=== PATIENT | female | born 1960 | race Hispanic/Latino ===

== ENCOUNTER → 2018-09-25 | Outpatient (CLI) | payer BC ==
[~2018-09-25] MED LIST: REGADENOSON 0.4 MG/5 ML SYR IV ONE
== END ==
LOC: NM 08:58
PROVIDERS: ATTEND Internal Medicine Cardiovascular Disease
DX: R07.9 Chest pain, unspecified (principal); R06.02 Shortness of breath
CPT/HCPCS: 78452; 93017; A9502; J2785

== ENCOUNTER → 2019-04-19 | Day surgery (SDC) | payer BC ==
[2019-04-16 14:44] LABS: BASOPHILS % 0.5 % (0.0-1.0); EOSINOPHILS # (AUTO) 0.2 (0.0-0.4); EOSINOPHILS % 2.3 % (0.0-6.0); HEMATOCRIT 41.5 % (34.2-44.1); HEMOGLOBIN 13.9 g/dL (12.0-16.0); LYMPHOCYTES % 39.8 % (18.0-39.1); MEAN CORPUSCULAR HEMOGLOBIN 32.6 pg (28-32); MEAN CORPUSCULAR HGB CONC 33.5 g/dL (31-35); MEAN CORPUSCULAR VOLUME 97.4 fL (81-99); MONOCYTES # (AUTO) 0.6 (0.2-0.8); MONOCYTES % 7.8 % (4.4-11.3); NEUTROPHILS # (AUTO) 3.7 (2.1-6.9); NEUTROPHILS % 49.3 % (38.7-80.0); PLATELET COUNT 227 x10e3/uL (140-360); RED BLOOD COUNT 4.26 x10e6/uL (3.6-5.1); RED CELL DISTRIBUTION WIDTH 12.5 % (11.7-14.4)
[2019-04-16 14:59] LABS: ANION GAP 15.6 mmol/L (8-16); BLOOD UREA NITROGEN 15 mg/dL (7-26); BUN/CREATININE RATIO 19 (6-25); CALCIUM 10.2 mg/dL (8.4-10.2); CARBON DIOXIDE 28 mmol/L (22-29); CHLORIDE 102 mmol/L (98-107); EST GLOMERULAR FILTRATION RATE > 60 ML/MIN (60-); GLUCOSE 95 mg/dL (74-118); POTASSIUM 4.6 mmol/L (3.5-5.1); SODIUM 141 mmol/L (136-145)
[~2019-04-19] VITALS: Ht 165.1 cm; Wt 77.1 kg
[~2019-04-19] MED LIST changes: +AMLODIPINE-BEN1 EAC5; +ASPIRIN81 MG; +FENTANYL CITRATE/PF 100MCG/2 ML INJ ONE; +HYDROCHLOROTHIA25 MG; +LIDOCAINE 1% W/EPINEPHRINE 20 ML VIAL ONE; +LISINOPRIL-HCT1 EACH PO; +METOPROLOL SUCC25 MG; +METOPROLOL SUCC50 MG PO; +MIDAZOLAM HCL 2 MG/2 ML VIAL ONE; -REGADENOSON 0.4 MG/5 ML SYR IV ONE; +SODIUM CHLORIDE 0.9% 500ML 500 ML ONE; +VANCOMYCIN 1GM/NS 250 ML 250 ML ONE
--- OUTSIDE RECORDS SUMMARY | 2019-04-19 06:49 | XMS REPORT ---
Author Author [facility] Address Unknown Phone Unavailable Care Team Providers Care Tap Builder Name Role Phone Criss JOE Unavailable Unavailable Problems This patient has no known problems. Allergies, Adverse Reactions, Alerts This patient has no known allergies or adverse reactions. Medications This patient has no known medications. Results Test Description Test Time Test Comments Text Results Atomic Results Result Comments Stress Test - Treadmill ONLY 2018-09-25 18:51:00 [place] [id number] Patient Name : ALONDRA COREA MR #: [id number] : 1960 Age/Sex: 58/F Adm Physician : SMOOTH JOE MD Admit Date : 09/25/18 Location : [place] Room/Bed : REPORT: Myoview Stress Test DATE OF STUDY: 09/25/2018 09:12:00 Stress Test - Treadmill ONLY STUDY PERFORMED: Stress test. PROCEDURE INDICATION: Chest pain and shortness of breath. INTERPRETATION SUPERVISING PHYSICIAN: Smooth Shaffer MD, Interventional Cardiology. INTERPRETATION: Lexiscan stress test was performed at rest, heart rate was 60, blood pressure 131/83. Resting EKG, normal sinus rhythm with occasional PACs and nonspecific repolarization abnormality. After Lexiscan was administered, heart rate amalia to 106 beats per minute and blood pressure incre ased to 151/80. There were no significant ST changes or arrhythmias throughout stress or recovery. Myocardial perfusion reveals normal rest and stress perfusion. Gated images demonstrate hyperdynamic left ventricular systolic function, normal regional wall motion, and left ventricular ejection fraction more than 70%. CONCLUSION: 1. Normal hemodynamic response to Lexiscan stress. 2. Normal electrocardiographic response to Lexiscan stress. 3. Normal myocardial perfusion at rest and stress. 4. Hyperdynamic left ventricular systolic function with left ventricular ejection fraction more than 70%. MD PeñaV/CLAUDIA /[id number] Signature Date Dictated By: SMOOTH BHAT MD Transcribed By: DAVEL on 09/25/18 <E lectronically signed by SMOOTH BHAT MD><<Signature on File>>10/03/18 [id number] COPY TO:
[2019-04-19 08:42] VITALS: BP 134/65
[2019-04-19 09:55] VITALS: BP 139/75
[2019-04-19 09:57] VITALS: BP 132/83
[2019-04-19 10:00] VITALS: BP 131/81
[2019-04-19 10:03] VITALS: BP 135/77
[2019-04-19 10:06] VITALS: BP 129/70
--- NOTE | 2019-04-19 11:00 | NUR ---
Pt meets DC criteria. Chest assessed for s/s of complication and presence of hematoma. General skin warm, dry, no discolor, and pulses present. IV removed from left hand. Distal tip appears intact. VS WNL. Pt denies pain, sob, or need at this time. Family at bedside. Review of discharge paperwork, prescription and follow up instructions. ILR waste management engineer and transmitter in possession of family. verbalized understanding. Pt to wheelchair and transported to front of hospital. Transferred to private vehicle under own strength w/o incident with DC paperwork in hand. - cgf
--- NOTE | 2019-04-19 13:36 | Operative Report ---
DATE OF PROCEDURE: 04/19/2019 SURGEON: Smooth Shaffer MD PROCEDURE: Implantable loop recorder LEGAL ADVISER: Smooth Shaffer MD, Interventional Cardiology. PROCEDURE INDICATION: Palpitations and episodes of fleeting chest pain and dyspnea concerning for arrhythmogenic etiology. PROCEDURE PERFORMED: Implantable loop recorder implant (Medtronic Reveal LINQ11, serial number [id number] Medtronic model 60101. Care[employer]Captcha patient monitor was also provided, serial number [id number]). PROCEDURE COMPLICATIONS: None. ESTIMATED BLOOD LOSS: Less than 2 mL. PROCEDURE SUMMARY: After consent was obtained, the patient was prepped and draped in sterile fashion. Vancomycin administered previous to and at the time of procedure via IV route. Local administration of 2% lidocaine with epinephrine was applied to left lateral sternal border and 4th intercostal space. An incision was then performed after which blunt dissection allowed a pocket for implantation of the loop recorder. After hemostasis was achieved, a Dermabond was applied to the site and after dried 4 x 4 and Tegaderm applied to cover. The patient was provided with a prescription for minocycline 100 mg every 12 hours for 7 days and care and recommendations. Device was programmed for surveillance of palpitations. No complications post procedure. The patient was instructed to schedule follow up in 2 weeks post procedure. CONCLUSION: Successful implant of Medtronic Reveal LINQ loop recorder. RECOMMENDATION: Outpatient monitoring. Smooth Shaffer MD AFV/MODL /[id number] VITALIY
== END | disposition home or self-care (01) ==
LOC: CATH LAB 06:47
PROVIDERS: ATTEND Internal Medicine Cardiovascular Disease
DX: R00.2 Palpitations (principal); R55 Syncope and collapse; R07.9 Chest pain, unspecified; Z01.812 Encounter for preprocedural laboratory examination; R06.02 Shortness of breath; I10 Essential (primary) hypertension; E78.5 Hyperlipidemia, unspecified; Z83.3 Family history of diabetes mellitus; Z82.49 Family history of ischemic heart disease and other diseases of the circulatory system
CPT/HCPCS: 33285; 36415; 80048; 85025; C1764; J2250; J3010; J3370; J7040